=== PATIENT | male | born 1980 | race Caucasian/White ===

== ENCOUNTER 2024-07-08 20:10 | Emergency (ER) | payer BC ==
[2024-07-08] MEDS: Lidocaine 1% 10 ML MDV INJECT STA (21:27)
== END 2024-07-08 22:49 | disposition home or self-care (01) ==
LOC: MW.ED 20:10
DX: S68.127A Partial traumatic metacarpophalangeal amputation of left little finger, initial encounter (principal); I10 Essential (primary) hypertension; Z79.899 Other long term (current) drug therapy; Z75.8 Other problems related to medical facilities and other health care; W26.8XXA Contact with other sharp object(s), not elsewhere classified, initial encounter; Y92.86 Slaughter house as the place of occurrence of the external cause
CPT/HCPCS: 12001; 99282; 99283; J3490